=== PATIENT | female | born 1980 | race Caucasian/White ===

== ENCOUNTER 2019-01-26 08:21 | Outpatient (CLI) | payer BC ==
--- NOTE | 2019-01-26 09:05 | ULT ---
Abdominal Ultrasound: Multiple grayscale images of right upper quadrant obtained according to protocol. INDICATION: Pain FINDINGS: Liver: Heterogeneous echotexture Gallbladder: Normal Gallbladder wall: Normal. Ceballos's Sign: Negative Common bile duct is normal. Ascites: None Spleen: Unremarkable. Pancreas: Obscured by bowel content, limiting assessment. Kidneys: No acute abnormalities. Aorta/IVC: No acute process. IMPRESSION: Heterogeneous hepatic echotexture. This could reflect hepatic steatosis. Recommend correlation with h epatic enzyme analysis.
== END 2019-01-26 08:22 | disposition home or self-care (01) ==
LOC: SCSULT 08:21
PROVIDERS: ATTEND Internal Medicine
DX: R10.12 Left upper quadrant pain (principal); R93.2 Abnormal findings on diagnostic imaging of liver and biliary tract
CPT/HCPCS: 93975

== ENCOUNTER 2021-02-12 07:15 | Outpatient (CLI) | payer OTHER | END 2021-02-12 07:16 | disposition home or self-care (01) | LOC: NM 07:15 | PROVIDERS: ATTEND Family Medicine | DX: R19.01 Right upper quadrant abdominal swelling, mass and lump (principal); M54.16 Radiculopathy, lumbar region | CPT/HCPCS: 78227; A9537 ==

== ENCOUNTER 2024-05-11 10:59 | Emergency (ER) | payer BC, OTHER ==
[2024-05-11 12:52] LABS: #Basophils 0.11 10x3/uL (0.0-0.2); %Basophils 1.3 % (0.0-1.0); %Eosinophils 1.3 % (0.0-10.0); %Lymphocytes 33.3 % (21.0-51.0); %Monocytes 6.7 % (0.0-10.0); %Neutrophils 56.8 % (42.0-75.0); Hemoglobin 14.9 g/dL (12.0-16.0); Mean Corpuscular HGB CONC 33.1 g/dL (32.0-36.0); Mean Corpuscular Hemoglobin 31.2 pg (27.0-31.0); Mean Corpuscular Volume 94.3 fL (78.0-98.0); Mean Platelet Volume 9.8 fL (7.4-10.4); Platelet Count 330 10x3/uL (130-400); RBC Distribution Width 12.3 % (11.5-14.5); Red Blood Cell (RBC) Count 4.77 mill/uL (4.20-5.40)
[2024-05-11 13:10] LABS: ALT (SGPT) 31 U/L (Less than 34); AST (SGOT) 37 U/L (11-34); Albumin 4.3 g/dL (3.1-4.5); Alkaline Phosphatase 58 U/L (40-110); Anion Gap 11 mmol/L (10-20); BUN (Urea Nitrogen) 16 mg/dL (7.0-18.7); Bilirubin, Total 0.5 mg/dL (0.3-1.2); Calc. Creatinine Clearance 0 mL/min (70-130); Calcium 9.6 mg/dL (7.8-10.44); Carbon Dioxide 26 mmol/L (22-29); Chloride 102 mmol/L (98-107); Estimated GFR 83; Globulin 3.8 g/dL (2.4-3.5); Glucose 94 mg/dL (70-105); Lipase 32 U/L (8-78); Potassium 4.2 mmol/L (3.5-5.1); Protein, Total 8.1 g/dL (6.0-8.3); Sodium 135 mmol/L (136-145)
[2024-05-11 13:14] LABS: Troponin I Less than 0.010 ng/mL (< 0.028)
[2024-05-11] MEDS ORDERED: Ondansetron ODT 4 MG TAB ONE (13:17)
== END 2024-05-11 15:36 | disposition home or self-care (01) ==
LOC: ERS 10:59
DX: K80.20 Calculus of gallbladder without cholecystitis without obstruction (principal); K76.0 Fatty (change of) liver, not elsewhere classified; E03.9 Hypothyroidism, unspecified; Z79.899 Other long term (current) drug therapy; Z79.01 Long term (current) use of anticoagulants
CPT/HCPCS: 36415; 71045; 76705; 80053; 83690; 84484; 85025; 93005; Q0162